=== PATIENT | female | born 1980 | race African-American/Black ===

== ENCOUNTER 2016-07-15 23:10 | Emergency (ER) | payer BC ==
[2016-07-16 00:52] LABS: PLATELET COUNT 383 x10^3mcL (130-400)
[2016-07-16 01:01] LABS: AMPHETAMINE QUAL UR NONE DETECTED (NEG <=1000)
[2016-07-16 01:02] LABS: CALCIUM 8.9 mg/dL (8.5-10.1); CARBON DIOXIDE 29.2 mmol/L (21-32); CHLORIDE SERUM 105 mmol/L (98-107); CREATININE SERUM 0.7 mg/dL (0.6-1.0); GFR1 > 60 mL/min; GLUCOSE SERUM 92 mg/dL (74-106); POTASSIUM SERUM 3.5 mmol/L (3.5-5.1); SODIUM SERUM 142 mmol/L (136-145)
[2016-07-16 01:05] LABS: ALBUMIN 3.6 g/dL (3.4-5.0); ALKALINE PHOSPHATASE 67 U/L (46-116); ALT/SGPT 14 U/L (14-59); AST/SGOT 12 U/L (15-37); BILIRUBIN TOTAL 0.2 mg/dL (0.20-1.00); TOTAL PROTEIN, SERUM 7.6 g/dL (6.4-8.2)
[2016-07-16 01:45] LABS: BASOPHIL % 3.2 % (0-2); RED CELL DISTRIBUTION WIDTH 19.3 % (11.5-14.5)
[2016-07-16 03:00] VITALS: BP 139/92
== END 2016-07-16 03:00 ==
LOC: ED 23:10
PROVIDERS: Emergency Medicine
DX: F32.9 Major depressive disorder, single episode, unspecified (principal); I10 Essential (primary) hypertension
CPT/HCPCS: 80307; G0480; Q0092